=== PATIENT | female | born 1985 | race Asian ===

== ENCOUNTER 2017-11-10 23:56 | Emergency (ER) | payer BC ==
[2017-11-10] MEDS ORDERED: Ondansetron 4 MG Tab.DIS PO ONE (23:57)
[2017-11-11] MEDS ORDERED: Ketorolac 30 MG/ML SDV IVPUSH ONE (00:06)
[2017-11-11] MEDS ORDERED: Sodium Chloride 0.9% 1,000 ML IV SCH (00:15)
[2017-11-11] MEDS ORDERED: Sodium Chloride 0.9% 10 ML Syringe FLUSH PRN (00:56)
[2017-11-11] MEDS ORDERED: Ondansetron 4 MG Tab.DIS PO ONE ×2 (01:44→01:46)
--- NOTE | 2017-11-14 12:01 | ER ---
DATE SEEN: 11/10/2017 TIME SEEN: 0010 hours. HISTORY OF PRESENT ILLNESS: This 32-year-old woman came in with abdominal discomfort and pain with associated vomiting. Symptoms started approximately 1100 hours. She had sudden severe pain at 2300 hours. Had beef stir-daley and ice cream at 0930 this morning. Last menstrual period 1 week ago. She is on control pills, previous . Diarrhea x4, vomiting x3. No blood in the stool or black tarry stool. No fever. No headache. No neck stiffness. No shortness of breath or cough or back pain or kidney stone history. Denies frequency, urgency, or dysuria. Muscle aches are noted to be moderate. FAMILY HISTORY: One sister has asthma. One brother diabetes and hypertension. Mother has with hypertension, cancer of the lungs. Father has chronic obstructive lung disease from smoking. On father's side, there is mild diabetes. On mother's side, there is a history of hypertension and diabetes. ALLERGIES: None. MEDICATIONS: None, except for control pills. REVIEW OF SYSTEMS: Otherwise negative except as noted above. PHYSICAL EXAMINATION: VITAL SIGNS: Blood pressure 120/75, heart rate 68 and regular, respirations 16, oxygen saturation 100%, temperature 36.9 degrees centigrade, weight 53.52 kilos, BMI 22.3. GENERAL: Alert woman, who is in moderate discomfort. Very pleasant disposition (as always). HEENT: Mild dryness of the oropharynx. TMs negative. EOMs negative. Nares negative. NECK: No cervical adenopathy. No thyromegaly. No pharyngeal erythema. LUNGS: Clear without rales, rhonchi, or wheezes. HEART: S1, S2. No irregular rate or rhythm. No tachycardia. No tachypnea. ABDOMEN: Soft with [id number] discomfort in the mid epigastrium with mild voluntary guarding. No heel tap rebound. No rebound. Bowel sounds increased. No distention. PELVIC: Not performed. RECTAL: Not performed. EXTREMITIES: Lower extremities without abnormality. No pedal edema. NEURO: Deep tendon reflexes in upper and lower extremities 1+, normoactive. Cranial nerves 2 through 12 intact. Oriented x3. Gait is appropriate. Strength is appropriate. LABORATORY FINDINGS: Potassium is 3.4 and low. White count 11,800, PMNs 80, lymphs 7, monos 3. Hemoglobin 12.7. Platelets 280,000. Influenza test negative. Urinalysis negative. Mild alkalosis. ASSESSMENT: 1. Metabolic acidosis with diarrhea and hypokalemia of 3.4. Potassium when compensated increased bicarb. 2. Not . 3. No evidence for influenza. 4. Dehydrated. PLAN: The patient given 1000 mL normal saline with sublingual Zofran. Toradol 30 mg IV. Pain went down to 2 to 3/10. She feels much better. Plans on going home. Off work tomorrow. /[id number] CJ/[id number]
== END 2017-11-11 02:00 | disposition home or self-care (01) ==
LOC: FB.ED 23:56
DX: E87.2 Acidosis (principal); R19.7 Diarrhea, unspecified; E87.6 Hypokalemia; E86.0 Dehydration
CPT/HCPCS: 36415; 80053; 81001; 85025; 87804; 96361; 96374; 99284; A9270; J1885; J7040; J7050